=== PATIENT | female | born 1965 | race Caucasian/White ===

== ENCOUNTER 2025-03-02 09:20 | Emergency (ER) | payer OTHER ==
[~2025-03-02] VITALS: Ht 165.1 cm; Wt 60.0 kg
[2025-03-02 09:34] VITALS: TEMP 98
[2025-03-02] MEDS ORDERED: ASPI-1450 PO (10:01)
[2025-03-02] MEDS ORDERED: IPRA4AER IH (10:01)
[2025-03-02] MEDS ORDERED: DIPH-1243 PO (10:01)
[2025-03-02] MEDS ORDERED: CRAN450T10 PO (10:01)
[2025-03-02] MEDS ORDERED: LISI-894 PO (10:01)
[2025-03-02] MEDS ORDERED: PANT-31 PO (10:01)
[2025-03-02] MEDS ORDERED: NICO-575 PO (10:01)
[2025-03-02] MEDS ORDERED: LACT100C2 PO (10:01)
[2025-03-02] MEDS ORDERED: CITA-144 PO (10:01)
[2025-03-02] MEDS ORDERED: CALC500T37 PO (10:01)
[2025-03-02] MEDS ORDERED: METF-1211 PO (10:01)
[2025-03-02] MEDS ORDERED: OXYB5TAB20 PO (10:01)
[2025-03-02] MEDS ORDERED: FURO40TA6 PO (10:01)
[2025-03-02] MEDS ORDERED: PREG50 PO (10:01)
[2025-03-02] MEDS ORDERED: MULT-264 PO (10:01)
[2025-03-02] MEDS ORDERED: CLON0.1T2 PO (10:01)
[2025-03-02] MEDS ORDERED: NITR-104 PO (10:01)
[2025-03-02] MEDS ORDERED: PALI6TAB15 PO (10:01)
[2025-03-02] MEDS ORDERED: MELA5TAB40 PO (10:01)
[2025-03-02] MEDS ORDERED: CHOL25TA4 PO (10:01)
[2025-03-02] MEDS ORDERED: CLON-592 PO (10:01)
[2025-03-02] MEDS ORDERED: LORA10TA7 PO (10:01)
[2025-03-02] MEDS ORDERED: SUCR1TAB2 PO (10:01)
[2025-03-02] MEDS ORDERED: FIBERT PO (10:01)
[2025-03-02] MEDS ORDERED: HYDR-4062 PO (10:01)
[2025-03-02 11:26] LABS: ALCOHOL, URINE DRUG SCREEN NEGATIVE (NEGATIVE); AMPHET/METH SCREEN,URINE NEGATIVE (NEGATIVE); APPEARANCE,URINE CLEAR (CLEAR); BARBITURATE SCREEN, URINE NEGATIVE (NEGATIVE); CANNABINOID SCREEN,URINE NEGATIVE (NEGATIVE); COCAINE SCREEN,URINE NEGATIVE (NEGATIVE); GLUCOSE, URINE (UA) NEGATIVE (NEGATIVE); LEUKOCYTE ESTERASE ,URINE NEGATIVE (NEGATIVE); METHADONE SCREEN, URINE NEGATIVE (NEGATIVE); NITRATE,URINE NEGATIVE (NEGATIVE); OCCULT BLOOD,URINE NEGATIVE (NEGATIVE); PH,URINE DRUG SCREEN 7.5 (5.0-8.0); SPECIFIC GRAVITIY, URINE 1.005 (1.003-1.030)
[2025-03-02 14:00] VITALS: BP 132/96; PULSE 77; RESP 18; O2SAT 98
[2025-03-02] MEDS: ACETAMINOPHEN 325 MG TABLET PO ONE (14:12)
== END 2025-03-02 16:15 | disposition home or self-care (01) ==
LOC: EMS 09:26
DX: R45.1 Restlessness and agitation (principal); E11.9 Type 2 diabetes mellitus without complications; F20.9 Schizophrenia, unspecified; F31.9 Bipolar disorder, unspecified; F41.9 Anxiety disorder, unspecified; I10 Essential (primary) hypertension; J44.89 Other specified chronic obstructive pulmonary disease; G43.909 Migraine, unspecified, not intractable, without status migrainosus; Z79.82 Long term (current) use of aspirin; Z79.899 Other long term (current) drug therapy; Z88.1 Allergy status to other antibiotic agents; Z88.8 Allergy status to other drugs, medicaments and biological substances; Z88.5 Allergy status to narcotic agent; Z88.2 Allergy status to sulfonamides
CPT/HCPCS: 80307; 81003; 99283

== ENCOUNTER 2025-04-02 17:04 | Inpatient (IN) | payer MEDICAID, OTHER ==
[~2025-04-02] VITALS: Ht 167.6 cm; Wt 70.0 kg
[~2025-04-02 17:04] MED LIST: ASPI-1450 PO; CALC500T37 PO; CHOL25TA4 PO; CITA-144 PO; CLON-592 PO; CLON0.1T2 PO; CRAN450T10 PO; DIPH-1243 PO; FIBERT PO; FURO40TA6 PO; HYDR-4062 PO; IPRA4AER IH; LACT100C2 PO; LISI-894 PO; LORA10TA7 PO; MELA5TAB40 PO; METF-1211 PO; MULT-264 PO; NICO-575 PO; NITR-104 PO; OXYB5TAB20 PO; PALI6TAB15 PO; PANT-31 PO; PREG50 PO; SUCR1TAB2 PO
[2025-04-02 17:38] LABS: COVID AG,FIA SOURCE NASAL SWAB
[2025-04-02] MEDS ORDERED: ONDA-104 PO (17:51)
[2025-04-02] MEDS ORDERED: ACET-2247 PO (17:51)
[2025-04-02 17:58] LABS: SARS-COV2 (COVID) ANTIGEN,FIA Negative (Negative)
[2025-04-02] MEDS ORDERED: ZOLPIDEM TARTRATE 10 MG TABLET PO PRN (18:30)
[2025-04-02] MEDS: ACETAMINOPHEN 325 MG TABLET PO ONE (18:52)
[2025-04-02 19:22] LABS: PLATELET COUNT (AUTO) 326 K/uL (150-450); RED BLOOD CELL COUNT(AUTO) 4.21 MIL/uL (4.00-5.20); RED CELL DISTRIBUTION WIDTH 17.0 % (11.5-14.5); WHITE BLOOD COUNT (AUTO) 6.4 K/uL (4.5-11.0)
[2025-04-02 19:29] LABS: CALCIUM, TOTAL 8.4 mg/dL (8.8-10.5); CREATININE 0.65 mg/dL (0.60-1.30); GLOMERULAR FILTR. RATE CALC > 60 mL/min (>60); GLUCOSE,RANDOM 97 mg/dL (70-110); SODIUM SERUM 126 mmol/L (136-145); UREA NITROGEN, BLOOD 4 mg/dL (7-18)
[2025-04-02 19:33] LABS: APPEARANCE,URINE CLEAR (CLEAR); GLUCOSE, URINE (UA) NEGATIVE (NEGATIVE); LEUKOCYTE ESTERASE ,URINE NEGATIVE (NEGATIVE); NITRATE,URINE NEGATIVE (NEGATIVE); OCCULT BLOOD,URINE NEGATIVE (NEGATIVE); PH,URINE DRUG SCREEN 6.5 (5.0-8.0); SPECIFIC GRAVITIY, URINE 1.002 (1.003-1.030)
[2025-04-02 19:50] LABS: AMPHET/METH SCREEN,URINE NEGATIVE (NEGATIVE); BARBITURATE SCREEN, URINE NEGATIVE (NEGATIVE); CANNABINOID SCREEN,URINE NEGATIVE (NEGATIVE); COCAINE SCREEN,URINE NEGATIVE (NEGATIVE); METHADONE SCREEN, URINE NEGATIVE (NEGATIVE)
[2025-04-02 19:51] LABS: ALCOHOL, URINE DRUG SCREEN NEGATIVE (NEGATIVE)
[2025-04-02 21:48] VITALS: O2SAT 97
[2025-04-02 22:57] VITALS: BP 112/66; PULSE 64; RESP 18; TEMP 98; O2SAT 99
[2025-04-03] VITALS (7 sets, daily range): BP systolic 96; BP diastolic 70; PULSE 69; RESP 16–17; TEMP 97.9; O2SAT 97–98
[2025-04-03] MEDS ORDERED: ALBUTEROL SULFATE HFA 90 MCG/PUFF 8 GM INHALER IH PRN (08:15)
[2025-04-03] MEDS ORDERED: NICOTINE 14 MG/24 HOUR PATCH TD PRN (08:15)
[2025-04-03] MEDS ORDERED: GuaiFENesin/D-METHORPHAN [SUGAR-FREE] 200-20MG/10 ML SYRUP UDCUP PO PRN (08:15)
[2025-04-03] MEDS ORDERED: GLUCAGON,HUMAN RECOMBINANT 1 MG VIAL IM PRN (08:15)
[2025-04-03] MEDS ORDERED: ONDANSETRON 4 MG TABLET PO PRN (08:15)
[2025-04-03] MEDS ORDERED: PETROLATUM,WHITE 28 GM JELLY TP PRN (08:15)
[2025-04-03] MEDS ORDERED: MAG HYDROX/ALUMINUM HYD/SIMETH ES 30 ML SUSPENSION UDCUP PO PRN (08:15)
[2025-04-03] MEDS ORDERED: LOPERAMIDE HCL 2 MG CAPSULE PO PRN (08:15)
[2025-04-03] MEDS: CHOLECALCIFEROL (VIT D3) 1,000 UNITS [25 MCG] TABLET PO SCH (08:40)
[2025-04-03] MEDS: SUCRALFATE 1 GM TABLET PO SCH (08:40)
[2025-04-03] MEDS: LORATADINE 10 MG TABLET PO SCH (08:40)
[2025-04-03] MEDS: PANTOPRAZOLE SODIUM 40 MG DR TABLET PO SCH (08:40)
[2025-04-03] MEDS: ASPIRIN 81 MG CHEWABLE TABLET PO SCH (08:40)
[2025-04-03] MEDS: IBUPROFEN 400 MG TABLET PO PRN (08:53)
[2025-04-03] MEDS: LACTOBACILLUS ACIDOPHILUS/BULGARICUS TABLET PO SCH (09:00)
[2025-04-03] MEDS: PALIPERIDONE 6 MG ER TABLET PO SCH (10:41)
[2025-04-03] MEDS: CITALOPRAM HYDROBROMIDE 20 MG TABLET PO SCH (10:41)
[2025-04-03] MEDS: NICOTINE POLACRILEX 2 MG LOZENGE PO PRN ×2 (11:03→20:55)
[2025-04-03] MEDS: HYDROCODONE/ACETAMINOPHEN 5-325 MG TABLET PO PRN (17:42)
[2025-04-03] MEDS: MAGNESIUM HYDROXIDE SUSPENSION 30 ML UDCUP PO PRN (18:42)
[2025-04-03] MEDS: MELATONIN 5 MG TABLET PO SCH (20:17)
[2025-04-03] MEDS: ACETAMINOPHEN 325 MG TABLET PO PRN (20:55)
[2025-04-04] VITALS (7 sets, daily range): BP systolic 97–108; BP diastolic 61–69; PULSE 70–73; RESP 15–18; TEMP 97.8; O2SAT 100
[2025-04-04 09:59] LABS: CHOL/HDL RATIO 3.3 (3.9-5.7); LDL CHOL (CALC.) 99.0 mg/dL (0-130)
[2025-04-04] MEDS: ETHYL ALCOHOL 62% ANTISEPTIC NASAL SANITIZER 0.6 ML AMPUL NASAL SCH (11:30)
[2025-04-04] MEDS: PREGABALIN 50 MG CAPSULE PO SCH (16:22)
[2025-04-04] MEDS: SENNOSIDES 8.8 MG/5 ML SYRUP UDCUP PO PRN (16:29)
[2025-04-04 16:45] LABS: GLUCOMETER DEV NAME(LOC) BV3N.2; GLUCOSE,POINT OF CARE 123 MG/DL (70-110)
[2025-04-04] MEDS: CHLORHEXIDINE GLUCONATE 2% TOWELETTE [2'S/6'S] TP SCH (20:37)
[2025-04-05 03:02] VITALS: BP 115/79; PULSE 87; RESP 18; TEMP 97.5; O2SAT 98
[2025-04-05 04:04] VITALS: RESP 16
[2025-04-05 06:21] LABS: GLUCOMETER DEV NAME(LOC) BV3N.2; GLUCOSE,POINT OF CARE 132 MG/DL (70-110)
[2025-04-05 08:19] VITALS: BP 109/89; PULSE 67; RESP 18; TEMP 97.2; O2SAT 100
[2025-04-05 09:09] LABS: CALCIUM, TOTAL 8.5 mg/dL (8.8-10.5); CREATININE 0.61 mg/dL (0.60-1.30); GLOMERULAR FILTR. RATE CALC > 60 mL/min (>60); GLUCOSE,RANDOM 140 mg/dL (70-110); SODIUM SERUM 129 mmol/L (136-145); UREA NITROGEN, BLOOD 6 mg/dL (7-18)
[2025-04-05 09:28] LABS: APPEARANCE,URINE CLEAR (CLEAR); GLUCOSE, URINE (UA) NEGATIVE (NEGATIVE); LEUKOCYTE ESTERASE ,URINE NEGATIVE (NEGATIVE); NITRATE,URINE NEGATIVE (NEGATIVE); OCCULT BLOOD,URINE NEGATIVE (NEGATIVE); PH,URINE DRUG SCREEN 7.0 (5.0-8.0); SPECIFIC GRAVITIY, URINE 1.008 (1.003-1.030)
[2025-04-05 09:32] LABS: ALCOHOL, URINE DRUG SCREEN NEGATIVE (NEGATIVE); AMPHET/METH SCREEN,URINE NEGATIVE (NEGATIVE); BARBITURATE SCREEN, URINE NEGATIVE (NEGATIVE); CANNABINOID SCREEN,URINE NEGATIVE (NEGATIVE); COCAINE SCREEN,URINE NEGATIVE (NEGATIVE); METHADONE SCREEN, URINE NEGATIVE (NEGATIVE)
[2025-04-05 11:15] LABS: GLUCOMETER DEV NAME(LOC) BV3N.2; GLUCOSE,POINT OF CARE 92 MG/DL (70-110)
[2025-04-05 16:26] VITALS: BP 115/68; PULSE 74; RESP 18; TEMP 97.8
[2025-04-05 16:41] LABS: GLUCOMETER DEV NAME(LOC) BV3N.2; GLUCOSE,POINT OF CARE 111 MG/DL (70-110)
[2025-04-05 17:20] VITALS: RESP 18
[2025-04-05 20:38] VITALS: BP 115/80; PULSE 65; RESP 17; TEMP 97.1; O2SAT 99
[2025-04-05 21:10] LABS: GLUCOMETER DEV NAME(LOC) BV3N.2; GLUCOSE,POINT OF CARE 97 MG/DL (70-110)
[2025-04-06] VITALS (10 sets, daily range): BP systolic 111–122; BP diastolic 76–103; PULSE 60–74; RESP 16–18; TEMP 97.5–97.6; O2SAT 99–100
[2025-04-06 11:11] LABS: GLUCOMETER DEV NAME(LOC) BV3N.2; GLUCOSE,POINT OF CARE 115 MG/DL (70-110)
[2025-04-06 16:51] LABS: GLUCOMETER DEV NAME(LOC) BV3N.2; GLUCOSE,POINT OF CARE 109 MG/DL (70-110)
[2025-04-06 20:21] LABS: GLUCOMETER DEV NAME(LOC) BV3N.2; GLUCOSE,POINT OF CARE 113 MG/DL (70-110)
[2025-04-07] VITALS (8 sets, daily range): BP systolic 118–143; BP diastolic 85–96; PULSE 61–84; RESP 16–18; TEMP 97.4–98.2; O2SAT 98–100
[2025-04-07 06:26] LABS: GLUCOMETER DEV NAME(LOC) BV3N.2; GLUCOSE,POINT OF CARE 174 MG/DL (70-110)
[2025-04-07 11:21] LABS: GLUCOMETER DEV NAME(LOC) BV3N.2; GLUCOSE,POINT OF CARE 92 MG/DL (70-110)
[2025-04-07 17:40] LABS: GLUCOMETER DEV NAME(LOC) BV3N.2; GLUCOSE,POINT OF CARE 80 MG/DL (70-110)
[2025-04-07] MEDS: PALIPERIDONE PALMITATE 234 MG/1.5 ML SYRINGE IM ONE (18:21)
[2025-04-07 20:36] LABS: GLUCOMETER DEV NAME(LOC) BV3N.2; GLUCOSE,POINT OF CARE 91 MG/DL (70-110)
[2025-04-08] VITALS (11 sets, daily range): BP systolic 117–164; BP diastolic 80–95; PULSE 54–63; RESP 16–18; TEMP 97.3–97.8; O2SAT 99–100
[2025-04-08 06:22] LABS: GLUCOMETER DEV NAME(LOC) BV3N.2; GLUCOSE,POINT OF CARE 88 MG/DL (70-110)
[2025-04-08 09:17] LABS: CALCIUM, TOTAL 9.1 mg/dL (8.8-10.5); CREATININE 0.73 mg/dL (0.60-1.30); GLOMERULAR FILTR. RATE CALC > 60 mL/min (>60); GLUCOSE,RANDOM 91 mg/dL (70-110); SODIUM SERUM 130 mmol/L (136-145); UREA NITROGEN, BLOOD 6 mg/dL (7-18)
[2025-04-08 11:25] LABS: GLUCOMETER DEV NAME(LOC) BV3N.2; GLUCOSE,POINT OF CARE 88 MG/DL (70-110)
[2025-04-08 16:56] LABS: GLUCOMETER DEV NAME(LOC) BV3N.2; GLUCOSE,POINT OF CARE 69 MG/DL (70-110)
[2025-04-08] MEDS ORDERED: BACITRACIN 28 GM OINTMENT TP PRN (18:15)
[2025-04-08 19:01] LABS: GLUCOMETER DEV NAME(LOC) BV3N.2; GLUCOSE,POINT OF CARE 76 MG/DL (70-110)
[2025-04-08 22:21] LABS: GLUCOMETER DEV NAME(LOC) BV3N.2; GLUCOSE,POINT OF CARE 80 MG/DL (70-110)
[2025-04-09] VITALS (11 sets, daily range): BP systolic 98–107; BP diastolic 70–77; PULSE 66–88; RESP 16–18; TEMP 97–98; O2SAT 98–100
[2025-04-09 07:26] LABS: GLUCOMETER DEV NAME(LOC) BV3N.2; GLUCOSE,POINT OF CARE 171 MG/DL (70-110)
[2025-04-09] MEDS: DEXTRAN 70 0.1%/HYPROMELL 0.3% 0.9 ML OPHTHALMIC SOLUTION [PF] OU SCH (08:04)
[2025-04-09 11:21] LABS: GLUCOMETER DEV NAME(LOC) BV3N.2; GLUCOSE,POINT OF CARE 160 MG/DL (70-110)
[2025-04-09] MEDS: DOCUSATE SODIUM 100 MG CAPSULE PO PRN (23:14)
[2025-04-10] VITALS (8 sets, daily range): BP systolic 105–127; BP diastolic 81–94; PULSE 60–70; RESP 16–18; TEMP 97.5–97.9; O2SAT 97–100
[2025-04-10 07:10] LABS: GLUCOMETER DEV NAME(LOC) BV3N.2; GLUCOSE,POINT OF CARE 112 MG/DL (70-110)
[2025-04-10 09:43] LABS: APPEARANCE,URINE CLEAR (CLEAR); GLUCOSE, URINE (UA) NEGATIVE (NEGATIVE); LEUKOCYTE ESTERASE ,URINE NEGATIVE (NEGATIVE); NITRATE,URINE NEGATIVE (NEGATIVE); OCCULT BLOOD,URINE NEGATIVE (NEGATIVE); SPECIFIC GRAVITIY, URINE 1.008 (1.003-1.030)
[2025-04-10 09:46] LABS: CALCIUM, TOTAL 8.6 mg/dL (8.8-10.5); CREATININE 0.64 mg/dL (0.60-1.30); GLOMERULAR FILTR. RATE CALC > 60 mL/min (>60); GLUCOSE,RANDOM 89 mg/dL (70-110); SODIUM SERUM 129 mmol/L (136-145); UREA NITROGEN, BLOOD 8 mg/dL (7-18)
[2025-04-10 10:18] LABS: SQUAMOUS EPITHELIAL CELL,UR Few /LPF (None Seen)
[2025-04-10] MEDS: SODIUM CHLORIDE 1 GM TABLET PO SCH (11:00)
[2025-04-10 11:15] LABS: GLUCOMETER DEV NAME(LOC) BV3N.2; GLUCOSE,POINT OF CARE 95 MG/DL (70-110)
[2025-04-10 16:51] LABS: GLUCOMETER DEV NAME(LOC) BV3N.2; GLUCOSE,POINT OF CARE 128 MG/DL (70-110)
[2025-04-10 23:25] LABS: GLUCOMETER DEV NAME(LOC) BV3N.2; GLUCOSE,POINT OF CARE 107 MG/DL (70-110)
[2025-04-11] VITALS (12 sets, daily range): BP systolic 109–158; BP diastolic 78–94; PULSE 51–90; RESP 16–20; TEMP 97.8–97.9; O2SAT 97–100
[2025-04-11 06:21] LABS: GLUCOMETER DEV NAME(LOC) BV3N.2; GLUCOSE,POINT OF CARE 107 MG/DL (70-110)
[2025-04-11] MEDS: PALIPERIDONE PALMITATE 156 MG/ML SYRINGE IM ONE (09:47)
[2025-04-11 11:21] LABS: GLUCOMETER DEV NAME(LOC) BV3N.2; GLUCOSE,POINT OF CARE 113 MG/DL (70-110)
[2025-04-11 16:25] LABS: GLUCOMETER DEV NAME(LOC) BV3N.2; GLUCOSE,POINT OF CARE 156 MG/DL (70-110)
[2025-04-11 20:46] LABS: GLUCOMETER DEV NAME(LOC) BV3N.2; GLUCOSE,POINT OF CARE 120 MG/DL (70-110)
[2025-04-12 01:37] VITALS: RESP 16
[2025-04-12 02:36] VITALS: RESP 16
[2025-04-12 05:33] VITALS: RESP 16
[2025-04-12 06:33] VITALS: RESP 16
[2025-04-12 07:25] LABS: GLUCOMETER DEV NAME(LOC) BV3N.2; GLUCOSE,POINT OF CARE 103 MG/DL (70-110)
[2025-04-12 08:34] VITALS: BP 137/92; PULSE 69; RESP 16; TEMP 97.6; O2SAT 100
== END 2025-04-12 13:33 | DRG 750 ==
LOC: EMS 17:04 → B3A 21:49
PROVIDERS: ADMIT Psychiatry & Neurology Psychiatry; ATTEND Psychiatry & Neurology Psychiatry
PROC: GZHZZZZ Group Psychotherapy (ICD-10-PCS; principal; 2025-04-03)
PROC: GZ52ZZZ Individual Psychotherapy, Cognitive (ICD-10-PCS; 2025-04-09)
DX: F25.0 Schizoaffective disorder, bipolar type (principal); E11.42 Type 2 diabetes mellitus with diabetic polyneuropathy; E87.1 Hypo-osmolality and hyponatremia; Z20.822 Contact with and (suspected) exposure to COVID-19; K21.9 Gastro-esophageal reflux disease without esophagitis; J44.89 Other specified chronic obstructive pulmonary disease; G43.909 Migraine, unspecified, not intractable, without status migrainosus; I10 Essential (primary) hypertension; E55.9 Vitamin D deficiency, unspecified; G47.00 Insomnia, unspecified; F43.10 Post-traumatic stress disorder, unspecified; F41.9 Anxiety disorder, unspecified; N32.81 Overactive bladder; K59.00 Constipation, unspecified; G40.909 Epilepsy, unspecified, not intractable, without status epilepticus; Z79.899 Other long term (current) drug therapy; Z86.73 Personal history of transient ischemic attack (TIA), and cerebral infarction without residual deficits; Z88.1 Allergy status to other antibiotic agents; Z88.2 Allergy status to sulfonamides; Z88.5 Allergy status to narcotic agent; Z88.8 Allergy status to other drugs, medicaments and biological substances; Z91.199 Patient's noncompliance with other medical treatment and regimen due to unspecified reason
CPT/HCPCS: 80048; 80061; 80307; 81001; 81003; 82962; 83036; 84443; 85025; 87081; G0480